=== PATIENT | male | born 1940 | race Caucasian/White ===

== ENCOUNTER 2020-12-13 13:35 | Emergency (ER) | payer BC, MEDICARE, OTHER ==
[~2020-12-13] VITALS: Ht 185.4 cm; Wt 104.8 kg
[2020-12-13] MEDS ORDERED: IV NORMAL SALINE 500ML 500 ML IV SCH (14:15)
[2020-12-13] MEDS ORDERED: MECLIZINE 12.5 MG TABLET. PO ONE (14:15)
[2020-12-13] MEDS ORDERED: MECLIZINE 12.5 MG TABLET. ONE (14:18)
--- NOTE | 2020-12-13 14:24 | EKG ---
[address] [address] Test Date: 2020-12-13 Test Time: 14:12:08 Pat Name: TASHIA WELCH Department: Room: Gender: M Career Development Coordinator/Teacher: WILFRED : 1940 Requested By: CY OROZCO Order Number: [id number] Reading MD: Measurements Intervals [place] Rate: 66 P: 166 [place]: 172 QRS: -31 QRSD: 96 T: 36 QT: 420 QTc: 442 Interpretive Statements SINUS RHYTHM VENTRICULAR PREMATURE COMPLEX(ES) ABNORMAL LEFT AXIS DEVIATION LEFT ANTERIOR FASCICULAR BLOCK ABNORMAL ECG RI6.02 No previous ECG available for comparison
--- NOTE | 2020-12-13 14:32 | RAD ---
EXAM: Chest, single view. HISTORY: Syncope. COMPARISON: None. FINDINGS: A frontal view of the chest is obtained. There is no infiltrate, pleural effusion or pneumo thorax. There is a prominent cardiac silhouette, likely accentuated due to portable technique. IMPRESSION: No acute pulmonary finding. Electronically signed by: Samantha Benitez MD (12/13/2020 2:29 PM) [id number]
[2020-12-13 14:33] LABS: BASO % 0 % (0-3); EOS # 0.2 x10^3/uL (0.0-0.7); EOS % 2 % (0-3); HEMATOCRIT 47.4 % (39.0-53.0); HEMOGLOBIN 15.4 g/dL (13.0-17.5); LYMPH # 1.7 x10^3/uL (1.0-4.8); LYMPH % 13 % (24-48); MEAN CORPUSCULAR HEMOGLOBIN 31 pg (25-35); MEAN CORPUSCULAR HGB CONC 33 g/dL (31-37); MEAN CORPUSCULAR VOLUME 94 fL (79-100); MONO # 0.7 x10^3/uL (0.0-1.1); MONO % 5 % (0-9); NEUT # 9.9 x10^3uL (1.8-7.7); NEUT % 79 % (31-73); PLATELET COUNT 202 x10^3/uL (140-400); RED BLOOD COUNT 5.04 x10^6/uL (4.30-5.70); RED CELL DISTRIBUTION WIDTH 13.6 % (11.5-14.5); WHITE BLOOD COUNT 12.5 x10^3/uL (4.0-11.0)
[2020-12-13 14:45] LABS: CREATININE 1.4 mg/dL (0.7-1.3); GFR 48.9; POTASSIUM 3.8 mmol/L (3.5-5.1)
--- NOTE | 2020-12-13 15:26 | PHYS DOC ---
Past History Past Medical History: Diabetes, Hypertension Past Surgical History: Other Additional Past Surgical Histo: LEFT ANKLE SURGERY Alcohol Use: Rarely Adult General Chief Complaint Chief Complaint: DIZZY/LIGHT HEADED HPI HPI Patient is a 80-year-old male with past medical history of hypertension presents emergency department for near syncopal episode and dizziness. 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 Patient states that he felt that he was getting faint. Family notes that he was having a little trouble finding his words. This lasted for approximately 2 minutes and the patient symptoms have improved. Patient states he still feeling slightly dizzy. Denies any headache, blurred vision, double vision, numbness or weakness in upper or lower extremities. Denies any chest pain or shortness of breath Review of Systems Review of Systems Constitutional: Denies fever or chills [] Eyes: Denies change in visual acuity, redness, or eye pain [] HENT: Denies nasal congestion or sore throat [] Respiratory: Denies cough or shortness of breath [] Cardiovascular: No additional information not addressed in HPI [] GI: Denies abdominal pain, nausea, vomiting, bloody stools or diarrhea [] : Denies dysuria or hematuria [] Musculoskeletal: Denies back pain or joint pain [] Integument: Denies rash or skin lesions [] Neurologic: Denies headache, focal weakness or sensory changes [] Endocrine: Denies polyuria or polydipsia [] All other systems were reviewed and found to be within normal limits, except as documented in this note. Current Medications Current Medications Current Medications Medications (Trade) Dose Ordered Sig/Alverto Start Time Stop Time Status Last Admin Dose Admin Meclizine HCl (Antivert) 12.5 mg STK-MED ONCE 12/13/20 14:18 12/13/20 14:18 DC Sodium Chloride 500 ml @ 500 mls/hr Q1H 12/13/20 14:15 12/13/20 14:23 DC 12/13/20 14:22 500 MLS/HR Allergies Allergies Allergies Coded Allergies Type Severity Reaction Last Updated Verified No Known Drug Allergies 12/13/20 No Physical Exam Physical Exam Constitutional: Well developed, well nourished, no acute distress, non-toxic appearance. [] HENT: Normocephalic, atraumatic, bilateral external ears normal, oropharynx moist, no oral exudates, nose normal. [] Eyes: PERRLA, EOMI, conjunctiva normal, no discharge. [] Neck: Normal range of motion, no tenderness, supple, no stridor. [] Cardiovascular:Heart rate regular rhythm, no murmur [] Lungs & Thorax: Bilateral breath sounds clear to auscultation [] Abdomen: Bowel sounds normal, soft, no tenderness, no masses, no pulsatile masses. [] Skin: Warm, dry, no erythema, no rash. [] Back: No tenderness, no CVA tenderness. [] Extremities: No tenderness, no cyanosis, no clubbing, ROM intact, no edema. [] Neurologic: Alert and oriented X 3, normal motor function, normal sensory function, no focal deficits noted. [] Psychologic: Affect normal, judgement normal, mood normal. [] Current Patient Data Vital Signs Vital Signs Date Time Temp Pulse Resp B/P (MAP) Pulse Ox O2 Delivery O2 Flow Rate FiO2 12/13/20 13:51 94.6 66 23 107/79 (88) 92 Room Air Lab Results Laboratory Tests Test 12/13/20 14:10 12/13/20 14:13 White Blood Count 12.5 x10^3/uL (4.0-11.0) H Red Blood Count 5.04 x10^6/uL (4.30-5.70) Hemoglobin 15.4 g/dL (13.0-17.5) Hematocrit 47.4 % (39.0-53.0) Mean Corpuscular Volume 94 fL (79-100) Mean Corpuscular Hemoglobin 31 pg (25-35) Mean Corpuscular Hemoglobin Concent 33 g/dL (31-37) Red Cell Distribution Width 13.6 % (11.5-14.5) Platelet Count 202 x10^3/uL (140-400) Neutrophils (%) (Auto) 79 % (31-73) H Lymphocytes (%) (Auto) 13 % (24-48) L Monocytes (%) (Auto) 5 % (0-9) Eosinophils (%) (Auto) 2 % (0-3) Basophils (%) (Auto) 0 % (0-3) Neutrophils # (Auto) 9.9 x10^3uL (1.8-7.7) H Lymphocytes # (Auto) 1.7 x10^3/uL (1.0-4.8) Monocytes # (Auto) 0.7 x10^3/uL (0.0-1.1) Eosinophils # (Auto) 0.2 x10^3/uL (0.0-0.7) Basophils # (Auto) 0.0 x10^3/uL (0.0-0.2) Sodium Level 140 mmol/L (136-145) Potassium Level 3.8 mmol/L (3.5-5.1) Chloride Level 101 mmol/L (98-107) Carbon Dioxide Level 27 mmol/L (21-32) Anion Gap 12 (6-14) Blood Urea Nitrogen 22 mg/dL (8-26) Creatinine 1.4 mg/dL (0.7-1.3) H Estimated GFR (Cockcroft-Gault) 48.9 Glucose Level 147 mg/dL (70-99) H Calcium Level 9.0 mg/dL (8.5-10.1) Troponin I Quantitative < 0.017 ng/mL (0-0.055) Glucose (Fingerstick) 158 mg/dL (70-99) H EKG EKG [] Radiology/Procedures Radiology/Procedures [] Heart Score Risk Factors: Risk Factors: DM, Current or recent (<one month) smoker, HTN, HLP, family history of CAD, obesity. Risk Scores: Risk Factors: DM, Current or recent (<one month) smoker, HTN, HLP, family history of CAD, obesity. Course & Med Decision Making Course & Med Decision Making Pertinent Labs and Imaging studies reviewed. (See chart for details) 80-year-old male presented emergency department with what appears to be a near- syncope event. No acute deficits at this time and I feel that the likelihood of an acute intracranial incident is very unlikely. Neurologic exam at the time of arrival is normal. At this time will obtain an work-up to make sure there is no evidence of acute coronary syndrome or other cardiac involvement. 16:33 -labs, EKG and chest are reviewed without any significant abnormality. Patient noted to have mild dehydration indicated by creatinine of 1.4. Patient was given IV fluids. Patient currently states that he is completely asymptomatic and his lightheadedness has resolved. Patient planning to make an appointment with his primary care physician tomorrow morning for repeat checkup. At this time I feel that his safety. Discharge patient home in the care of his family. I spoken with the patient and her caregivers. I explained the patient's condition, diagnoses and treatment plan based on the information available to me at this time. I have answered the patient and her caregiver's questions and addressed any concerns. The patient and her caregivers have a good understandin g of patient's diagnosis, condition and treatment plan as can be expected at this point. Vital signs have been stable. Patient's condition is stable and appropriate for discharge from the emergency department. Patient will pursue further outpatient evaluation with primary care physician or other designated or consulting physician as outlined in the discharge instructions. The patient and/or caregivers are agreeable to this plan of care and follow-up instructions have been explained in detail. The patient and/or caregivers have received these instructions in written form and have expressed an understanding of the discharge instructions. The patient and/or caregivers are aware that any significant change of condition or worsening of symptoms should prompt immediate return to this or the closest emergency department or call to 911. Marissa Disclaimer Dragon Disclaimer This electronic medical record was generated, in whole or in part, using a voice recognition dictation system. Departure Departure: Impression: Primary Impression: Mild dehydration Disposition: 01 DC HOME SELF CARE/HOMELESS Condition: GOOD Referrals: GUY NICHOLE MD (PCP) Patient Instructions: Dizziness Additional Instructions: EMERGENCY DEPARTMENT GENERAL DISCHARGE INSTRUCTIONS Thank you for coming to [facility] Emergency Department (ED) today and trusting us with you care. We trust that you had a positive experience in our Emergency Department. If you wish to speak to the department management, you may call the Director at [phone]. YOUR FOLLOW UP INSTRUCTIONS ARE FOLLOWS: 1. Do you have a private Doctor? If you do not have a private doctor, please ask for a resource list of physicians or clinics that may be able to assist you with follow up care. 2. The Emergency Physicain has interpreted your x-rays. The X-Ray specialist will also review them. If there is a change in the findings, you will be notified in 48 hours when at all possible. 3. A lab test or culture has been done, your results will be reviewed and you will be notified if you need a change in treatment. ADDITIONAL INSTRUCTIONS AND INFORMATION: 1. Your care today has been supervised by a physician who is specially trained in emergency care. Many problems require more than one evaluation for a complete diagnosis and treatment. We recommend that you schedule your follow up appointment as recommended to ensure complete treatment of you illness or injury. If you are unable to obtain follow up care and continue to have a problem, or if your condition worsens, we recommend that you return to the ED. 2. We are not able to safely determine your condition over the phone nor are we able to give sound medical advice over the phone. For these safety reasons, if you call for medical advice we will ask you to come to the ED for further evaluation. 3. If you have any questions regarding these discharge instructions please call the ED at [phone]. SAFETY INFORMATION: In the interest of safety, wellness, and injury prevention; we encourage you to wear your sealbelt, if you smoke; quite smoking, and we encourage family to use a protective helmet for bicycling and other sporting events that present an increased risk for head injury. IF YOUR SYMPTOMS WORSEN OR NEW SYMPTOMS DEVELOP, OR YOU HAVE CONCERNS ABOUT YOUR CONDITION; OR IF YOUR CONDITION WORSENS WHILE YOU ARE WAITING FOR YOUR FOLLOW UP APPOINTMENT; EITHER CONTACT YOUR PRIMARY CARE DOCTOR, THE PHYSICIAN WHOSE NAME AND NUMBER YOU WERE GIVEN, OR RETURN TO THE ED IMMEDIATELY. CY OROZCO MD Dec 13, 2020 15:26
[2020-12-13 16:21] LABS: BILIRUBIN,URINE NEG (NEG); CLARITY,URINE HAZY; COLOR,URINE YELLOW; GLUCOSE,URINE NEG (NEG)
[2020-12-13 16:22] LABS: BACTERIA,URINE 0 /HPF (0-FEW); HYALINE CASTS, URINE MANY /HPF; NITRITE,URINE NEG (NEG); RBC,URINE OCC /HPF (0-2); SQUAMOUS EPITHELIAL CELL,UR OCC /LPF; UROBILINOGEN,URINE 0.2 mg/dL (0.2 mg/dL)
[2020-12-13 16:51] VITALS: BP 112/72
== END 2020-12-13 16:51 | disposition home or self-care (01) ==
LOC: ER 13:35
DX: E86.0 Dehydration (principal); R55 Syncope and collapse; R42 Dizziness and giddiness; E11.9 Type 2 diabetes mellitus without complications; I10 Essential (primary) hypertension
CPT/HCPCS: 36415; 71045; 80048; 81001; 82947; 84484; 85025; 93005; 96360; 96361; 99285; J7040

== ENCOUNTER → 2021-08-17 | Outpatient (CLI) | payer MEDICARE ==
--- NOTE | 2021-08-18 09:02 | RAD ---
Bilateral lower extremity arterial duplex ultrasound study without comparison for peripheral vascular disease. Hypertension TECHNIQUE: Real-time grayscale and color and spectral Doppler evaluation of the arteries of lower ext remity is performed. FINDINGS: There is mild multifocal calcified atherosclerosis. All vessels above the knee are widely p atent and triphasic bilaterally. Below the knee on the right, the posterior tibial artery, peroneal a rtery, and anterior tibial arteries are patent and triphasic, but with more bulky calcified atheroscl erosis. There is no flow seen within the dorsalis pedis artery. On the left, findings are symmetrical with moderate multifocal calcified atherosclerosis but normal phasicity and patency of the posterior tibial, peroneal, and anterior tibial arteries, and absence of flow within the dorsalis pedis arteri es. IMPRESSION: 1. 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 Electronically signed by: Antonio Mooney MD (08/18/2021 9:00 AM) [id number]
== END ==
LOC: US 15:44
PROVIDERS: ATTEND Family Medicine
DX: I70.209 Unspecified atherosclerosis of native arteries of extremities, unspecified extremity (principal)
CPT/HCPCS: 93925